=== PATIENT | male | born 1985 | race Caucasian/White ===

== ENCOUNTER 2022-09-26 09:03 | Outpatient (CLI) | payer OTHER, SELFPAY ==
--- NOTE | 2022-09-26 | CRLHL7_ITS ---
For Patients: As a result of the Cures Act, medical imaging exams and procedure reports are released immediately into your electronic medical record. You may view this report before your referring provider. If you have questions, please contact your health care provider. INDICATION: Pre MRI screen for metallic foreign body. COMPARISON: none TECHNIQUE: AP suazo view of the orbits FINDINGS: There is no evidence of a metallic foreign body over either orbit. The paranasal sinuses are clear IMPRESSION: No evidence of metallic foreign body. Dictated by Wyatt Hussein MD @ 09/26/2022 11:33:20 AM (Electronically Signed)
--- NOTE | 2022-09-26 09:15 | CRLHL7_ITS ---
For Patients: As a result of the Century Cures Act, medical imaging exams and procedure reports are released immediately into your electronic medical record. You may view this report before your referring provider. If you have questions, please contact your health care provider. Indication: Right shoulder pain. Procedure : Informed consent was obtained. The site was marked. Time-out was performed. The skin of the right shoulder was cleansed with ChloraPrep. A sterile drape was placed. 8 cc of 1 percent lidocaine was administered for superficial anesthesia. Subsequently a 22 gauge spinal needle was introduced into the right shoulder joint under intermittent fluoroscopic guidance. Injection of 2 cc nonionic Omnipaque 240 contrast confirmed intra-articular location. Subsequently 11 cc of dilute gadolinium were injected. The needle was removed and hemostasis achieved with direct pressure. A dressing was placed. The patient tolerated the procedure well without immediate complication and was immediately sent to MRI for imaging. Total fluoroscopy time 9 seconds. Impression: Successful fluoroscopically guided right shoulder arthrogram for MRI. Dictated by Wyatt Hussein MD @ 09/26/2022 11:15:32 AM (Electronically Signed)
--- NOTE | 2022-09-26 10:15 | MR_ITS ---
[address] [address] Phone:?[phone] Fax:?[phone] Referring Physician Information: Ayush Curiel M.D. [address] [facility] [address] Phone:?[phone] Fax:?[phone] Patient:Aleks Santizo D.O.B:?1985 Sex:?Male Phone:?[phone] [facility] MRN:?[id number] Exam Date:?09/26/2022 ? EXAM: MR ARTHROGRAM of the?RIGHT?SHOULDER CLINICAL INFORMATION: Male, 37 years old, with shoulder pain INDICATION: Evaluate for labral versus rotator cuff tear. PRIOR SURGERY: None reported. PLAIN FILMS: None available. COMPARISONS: No prior MRIs available. TECHNICAL INFORMATION: Exam performed after the injection of gadolinium-based contrast into the glenohumeral joint of the right shoulder, reported separately. Using a 1.5T MR scanner and a localizing surface coil: coronal obliques: PD, T2, STIR, T1FS sagittal obliques: PD, T2 axials: PD, T2 SEDATION: None CONTRAST: No intravenous contrast was administered. FINDINGS: Bones: Proximal humerus: No fracture or marrow edema/pathology. No humeral Hill-Sachs or reverse Hill-Sachs lesion/impaction or contusion. Glenoid: No fracture or marrow edema/pathology. No osseous Bankart lesion. Rotator cuff and muscles/tendons: Supraspinatus: Marked tendinosis of the anterior supraspinatus distal tendon fibers with delamination. Focal low-grade intrasubstance tear measuring 4 mm in AP dimension (coronal series 7 image 11). No high-grade or full-thickness tendon tearing or muscle belly atrophic changes. Infraspinatus: Mild infraspinatus tendinosis without rotator cuff tear. Teres minor: No tendinopathy, tear or atrophy. Subscapularis: No tendinopathy, tear or atrophy. Deltoid: No strain or atrophy. Coracoacromial arch: Acromion morphology: The acromion has type II morphology. No discrete subacromial osseous spur or os acromiale. Acromiohumeral space: The acromiohumeral space is within normal limits. Coracohumeral space: The coracohumeral space is within normal limits. Acromioclavicular joint: Joint: No acute injury, arthropathy, or inferior hypertrophy. Ligaments: Coracoclavicular ligaments are intact. Bursae: Subacromial-subdeltoid: No convincing subacromial bursal thickening/bursitis. Subcoracoid: No convincing subcoracoid bursal thickening/bursitis. Biceps tendon: The long head of the biceps tendon is present within the bicipital groove. The intra-articular and extra-articular segments are intact without tendinosis, tenosynovitis, or displacement Glenohumeral joint: Contrast: Gadolinium-based contrast distends the glenohumeral joint, as expected, and fails to extend into the subacromial-subdeltoid bursa. Articular cartilage: Humeral head: No osteochondral abnormalities. Glenoid: No osteochondral abnormalities. Loose bodies: No discrete intra-articular body within the joint. Labrum:?There is signal abnormality undermining the superior labrum extending laterally into the labral tissue (coronal series 7 images 12-14). No other definite evidence for labral tear. No paralabral ganglion cyst is identified. Inferior glenohumeral ligament/axillary pouch:?Intact. The axillary pouch is normal in thickness and signal. No evidence of adhesive capsulitis or capsular injury. IMPRESSION: 1. Marked tendinosis of the anterior supraspinatus distal tendon fibers with delamination. Focal low-grade intrasubstance tearing measuring 4 mm. No high- grade or full-thickness tendon tearing. 2. Mild infraspinatus tendinosis without rotator cuff tear. 3. Tearing of the superior labrum extending posteriorly from the biceps anchor. 4. No tendinopathy, tear, or displacement of the long head of the biceps tendon. 5. No osteochondral defect. KME Electronically signed on 09/27/2022 8:09:00 PM by Christi Magana M.D.
== END 2022-09-26 09:04 | disposition home or self-care (01) ==
PROVIDERS: PCP Family Medicine; Visit Provider Orthopaedic Surgery
DX: M25.511 Pain in right shoulder (principal); S46.911A Strain of unspecified muscle, fascia and tendon at shoulder and upper arm level, right arm, initial encounter; S43.431A Superior glenoid labrum lesion of right shoulder, initial encounter
CPT/HCPCS: 23350; 70030; 73222; 77002; A9575; Q9966

== ENCOUNTER 2025-04-16 15:30 | Emergency (ER) | payer OTHER, SELFPAY ==
--- OUTSIDE RECORDS SUMMARY | 2024-10-13 05:44 | XMS_ITS | Continuity of Care Document ---
Author Organization [facility] Address [address] [address] [place] [address] Phone Care Team Providers Care Medical Pathology Teacher Name Role Phone Rich Lemos MD Unavailabl e Advance Directives Directive Yes / No Effective Date File Name No Information Encounters Encounter Description Practice Location Reason(s) For Visit Diagnoses Date Provider Providers Copied on Encounter [facility], [address] [address], [place], [place], [id number], [place] tel:[phone] [facility] No Information Colten Villanueva. [address] [facility] [address], [place], [place], [id number], [place]. tel:[phone] Family History Family Member Type Diagnosis Age At Onset No Information Payers Payer name Insurance type Covered republican ID Authoriza tion(s) No Information Social History Type Description Quantity Date Captured Comments Sex Male Smoking Status No Information Chief Complaint And Reason For Visit No Information Reason For Referral Reason For Referral No Information History Of Present Illness Encounter Date Complaint History Of Prese nt Illness No Information Functional Status Date Functional Assessmen t No Information Instructions Date Instruction Additional Infor mation No Information Assessments Type Assessment Date No Information Patient Care Teams Name Effective Dates (start - stop) Status Members No Information
--- OUTSIDE RECORDS SUMMARY | 2024-10-13 05:44 | XMS_ITS | Continuity of Care Document ---
Author Organization [facility] Address [address] [address] [place] [address] Phone Care Team Providers Care Tug Boat Captain Name Role Phone Rich Lemos MD Unavailabl e Advance Directives Directive Yes / No Effective Date File Name No Information Encounters Encounter Description Practice Location Reason(s) For Visit Diagnoses Date Provider Providers Copied on Encounter [facility], [address] [address], [place], [place], [id number], [place] tel:[phone] [facility] No Information Colten Villanueva. [address] [facility] [address], [place], [place], [id number], [place]. tel:[phone] Family History Family Member Type Diagnosis Age At Onset No Information Payers Payer name Insurance type Covered libertarian ID Authoriza tion(s) No Information Social History [...]
--- OUTSIDE RECORDS SUMMARY | 2025-04-16 15:32 | XMS_ITS | Clinical Summary ---
Author Organization [facility] Address [address] [place] [address] Care Team Providers Care Scrap Preparer Name Role Phone Elsewhere, Pcp Primary Care Provider Unavailabl e Source Comments Patient records contain information from all sites at [facility]. For routine questions regarding patient records, call [phone] during business hours, M-F 8:00 AM - 5:00 PM Central Time. 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 Gender Identity Not on file Sexual Orientation Not on file Last Filed Vital Signs Vital Sign Reading Time Taken Comments Blood Pressure 123/87 2024 11:15 AM CDT Pulse 80 2024 11:15 AM CDT Temperature 36.6 C (97.9 F) 2024 9:49 AM CDT Respiratory Rate 20 07/10/2016 3:17 PM CDT Oxygen Saturation 97% 2024 11:15 AM CDT Inhaled Oxygen Concentration - - Weight 79 kg (174 lb 2.6 oz) 2024 9:51 AM CDT Height 182 cm (5' 11.65) 07/10/2016 3:17 PM CDT Body Mass Index 23.85 07/10/2016 3:17 PM CDT Plan of Treatment Health Maintenance Due Date Last Done Comments HIV Screening 1985 Hepatitis C Screening 1985 Lipid (Cholesterol) Screening 1985 Tobacco Cessation counseling 1985 Hepatitis B Vaccines (1 of 3 - 19+ 3-dose series) 02/18/2003 Pneumococcal vaccine (0-49 y ears) (1 of 2 - PCV) 02/18/2003 DTaP,Tdap,and Td Vaccines (2 - Td or Tdap) 10/27/2021 10/27/2011 COVID-19 Vaccine (1 - 2023-2 5 season) 2024 Influenza Vaccine (#1) 2024 Depression Screening (Annual PHQ-2) 10/27/2024 HPV Vaccines Aged Out No longer eligi ble based on patient's age to complete this topic IPV Vaccines Aged Out No longer eligi ble based on patient's age to complete this topic Insurance [facility] Care Teams Scrap Preparer Relationship Specialty Start Date End Date Elsewhere, Pcp PCP - General 07/27/19
--- OUTSIDE RECORDS SUMMARY | 2025-04-16 15:32 | XMS_ITS | Clinical Summary ---
Author Organization [facility] Address [address] [place] [address] Care Team Providers Care Orthotics Prosthetics Technician Name Role Phone Unknown, Doctor Primary Care Provider Unavailabl e Allergies No known active allergies Medications triamcinolone (ARISTOCORT) 0.1 % ointment Apply topically to affected area(s) 3 times daily. 1 Tube 0 1 Active triamcinolone (ARISTOCORT; KENALOG) 0.1 % creamIndications :Contact dermatitis and other eczema, due to unspecified cause Apply topically to affected area(s) 3 times daily. 1 Tube 1 2 Active ketoconazole 2% topical (NIZORAL) 2 % creamIndications :Contact dermatitis and other eczema, due to unspecified cause Apply twice daily 45 g 1 2 Active predniSONE (DELTASONE) 20 mg tablet Take 1 tablet by mouth once daily with a meal. 14 tablet 0 2 Active predniSONE (DELTASONE) 20 mg tablet Take 1 tablet by mouth once daily with a meal. 14 tablet 0 2 Active desoximetasone 0.25% topical (TOPICORT) 0.25 % ointment Apply topically to affected area(s) 2 times daily. 30 g 3 3 Active predniSONE (DELTASONE) 20 mg tablet 2 daily for 5 days then 1 daily for 5 days 15 tablet 0 4 Active triamcinolone (ARISTOCORT; KENALOG) 0.1 % cream Apply topically to affected area(s) 3 times daily. 120 g 3 4 Active predniSONE (DELTASONE) 20 mg tablet 2 daily for 5 days then one daily for 5 15 tablet 0 4 Active desoximetasone 0.25% topical (TOPICORT) 0.25 % ointmentIndicati ons:Other psoriasis Apply topically to affected area(s) 2 times daily. 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 Gender Identity Not on file Sexual Orientation Not on file Obstetrics History Last Filed Vital Signs Vital Sign Reading Time Taken Comments Blood Pressure 106/60 02/25/2014 4:22 PM CDT Pulse 68 01/11/2013 3:09 PM CDT Temperature 36.5 C (97.7 F) 01/11/2013 3:09 PM CDT Respiratory Rate - - Oxygen Saturation - - Inhaled Oxygen Concentration - - Weight 80.4 kg (177 lb 4.8 oz) 02/25/2014 4:22 P M CDT Height 182.9 cm (6') 02/25/2014 4:22 PM CDT Body Mass Index 24.05 02/25/2014 4:22 PM CDT Plan of Treatment Health Maintenance Due Date Last Done Comments Depression screening for age 12+ 1996 HIV for age 15-65 02/18/1999 BMI (ht and wt on same day) for age 18+ 02/18/2002 Hepatitis C screening for ag e 18-79 02/18/2002 Hepatitis B series for 19+ ( 1 of 3 - 19+ 3-dose series) 02/18/2003 Lipids for age 35-44 02/18/2019 Tetanus booster 10/27/2021 10/27/2011, 04/22/2006 COVID-19 vaccine series ( - 2023- season) 2024 Influenza Vaccine (Season Ended) 2025 Tdap Completed 10/27/2011 Pneumococcal series for age 6-49 Aged Out No longer eligible b ased on patient's age to complete this topic Insurance [facility] PPO on file Care Teams Orthotics Prosthetics Technician Relationship Specialty Start Date End Date Unknown, Doctor . PCP - General 08/14/18
[2025-04-16 15:34] VITALS: BP 146/75; PULSE 97; RESP 16; TEMP 36.6; O2SAT 96; BMI 24.4
--- NOTE | 2025-04-16 15:55 | ED.WOUNDLAC ---
HPI - Wound/Laceration General Date Seen: 04/16/25 Chief Complaint: Laceration/Wound Stated Complaint: Left pointer finger laceration Time Seen by Provider: 04/16/25 15:42 Source: patient Mode of arrival: ambulatory Limitations: no limitations History of Present Illness HPI narrative: Patient is a 40-year-old male presenting to the emergency department for laceration to his left pointer finger. Laceration is just proximal to the D IP and is about 1 cm in length. Bleeding is controlled with a Band-Aid. When I took the Band-Aid off he started to bleed again. Has full range of motion of the finger. Denies any other injuries. States he cut himself with an old utility knife that he recently re sharpened. Related Data Home Medications ?Medication ?Instructions ?Recorded ?Confirmed No Known Home Medications 04/16/25 04/16/25 Allergies Allergy/AdvReac Type Severity Reaction Status Date / Time No Known Drug Allergies Allergy Verified 10/25/24 07:56 PFSH PFS Surgical History History of nasal surgery (2020) ?Z98.890 - Other specified postprocedural states (ICD-10) Social History Smoking Status: Never smoker Do you use any of these nicotine containing products: Smokeless Tobacco Second hand tobacco smoke exposure: No Exam Const: Vital Signs, click to edit/add: Vital Signs - 24 hr 04/16/25 15:34 Temperature 97.9 F Pulse Rate [Pulse Oximeter] 97 Respiratory Rate 16 Blood Pressure [Ri ght Upper Arm] 146/75 H Pulse Oximetry 96 Oxygen Delivery Me thod Room Air Course Vital Signs Vital signs: Initial Vital Signs Temperature 97.9 F 04/16/25 15:34 Temperature Source Temporal Artery Scan 04/16/25 15:34 Pulse Rate 97 04/16/25 15:34 Respiratory Rate 16 04/16/25 15:34 Blood Pressure 146/75 H 04/16/25 15:34 Blood Pressure Mean 98 04/16/25 15:34 Blood Pressure Position Sitting 04/16/25 15:34 Pulse Oximetry 96 04/16/25 15:34 Oxygen Delivery Method Room Air 04/16/25 15:34 Vital Signs Temperature 97.9 F 04/16/25 15:34 Pulse Rate 97 04/16/25 15:34 Respiratory Rate 16 04/16/25 15:34 Blood Pressure 146/75 H 04/16/25 15:34 Pulse Oximetry 96 04/16/25 15:34 Oxygen Delivery Method Room Air 04/16/25 15:34 Temperature 97.9 F 04/16/25 15:34 Pulse Rate 97 04/16/25 15:34 Respiratory Rate 16 04/16/25 15:34 Blood Pressure 146/75 H 04/16/25 15:34 Pulse Oximetry 96 04/16/25 15:34 Oxygen Delivery Method Room Air 04/16/25 15:34 MDM - Wound/Laceration MDM Narrative Medical decision making narrative: Patient is a 40-year-old male presenting for laceration. His last tetanus was 10 years ago he states in this will be updated. The wound looks relatively clean. Area was extensively irrigated. Three states is were placed. He is doing well at this time. He will be discharged. Antibiotics are not indicated at this time. Discharge Plan Discharge Clinical Impression: Laceration Patient Disposition: Home, Self-Care Condition: Stable Instructions: Finger Laceration (ED) Additional Instructions: Follow-up with your primary care provider or urgent care in the next 7 days to have the 3 sutures removed. For next 6 months, once sutures are removed, whenever you go outside put a dab of sunscreen over the laceration site to improve scar appearance. Topical antibiotics are not necessary at this time. Patient can shower but do not submerge the laceration until sutures are removed Prescriptions: No Action No Known Home Medications Follow Up/Referrals: Sameer Murphy MD [Primary Care Provider, Family Practice] Stand Alone Forms: [facility] Info Instructions Procedures Laceration Finger: Name of person performing procedure: Jairon Walters Site: hand (Distal pointer finger) Side (If applicable): left Size (cm): 1 Description: linear Depth: simple, single layer Local Anesthetic: lidocaine 1% (Digital Nerve block) Amount of anesthesia used (mL): 4 Pre-repair: wound explored, irrigated extensively and deep structures intact Skin layer closed with: nylon Size (cm): 5-0 Number of sutures: 3 Technique: simple, interrupted
[2025-04-16] MEDS: TETANUS/DIPHTH/PERTUSSIS 0.5 ML SYRINGE IM (16:33)
[2025-04-16] MEDS: LIDOCAINE 1%-EPI 1:100,000 4 ML INFILTRATI (16:33)
== END 2025-04-16 16:56 | disposition home or self-care (01) ==
PROVIDERS: Emergency Provider Student in an Organized Health Care Education/Training Program; PCP Family Medicine
DX: S61.211A Laceration without foreign body of left index finger without damage to nail, initial encounter (principal); Z23 Encounter for immunization; W26.9XXA Contact with unspecified sharp object(s), initial encounter
CPT/HCPCS: 12001; 90471; 90715; 99283